=== PATIENT | male | born 1995 | race Caucasian/White ===

== ENCOUNTER 2019-01-03 21:28 | Emergency (ER) | payer BC ==
[~2019-01-03] VITALS: Ht 180.3 cm; Wt 74.8 kg
--- NOTE | 2019-01-03 21:49 | NUR ---
Patient discharged to home in stable conditon. Written and verbal after care instructions given. Patient verbalizes understanding of instructions. Pt wound cleaned w/saline & hydrogen peroxide. Wound closed w/ Dermabond applied by Dr. Zaragoza. Pt appears in no acute distress. Walked out of ER in stable gait. Vital signs stable.
[2019-01-03 21:51] VITALS: BP 104/61
== END 2019-01-03 21:51 | disposition home or self-care (01) ==
LOC: ER 21:38
DX: S01.01XA Laceration without foreign body of scalp, initial encounter (principal); W22.8XXA Striking against or struck by other objects, initial encounter; Y93.89 Activity, other specified; Y92.89 Other specified places as the place of occurrence of the external cause; Y99.8 Other external cause status
CPT/HCPCS: A4663